=== PATIENT | male | born 1970 | race African-American/Black ===

== ENCOUNTER 2017-07-16 11:22 | Observation (INO) ==
[2017-07-16] MEDS ORDERED: methylPREDNISolone SOD SUC 125 MG/2 ML VIAL IV STA (11:38)
[2017-07-16] MEDS ORDERED: EPINEPHrine 1 MG/ML VIAL SUBCUT STA (11:38)
[2017-07-16] MEDS ORDERED: diphenhydrAMINE 50 MG/1 ML VIAL IV STA (11:38)
[2017-07-16] MEDS ORDERED: FAMOTIDINE 20 MG/2 ML VIAL IV STA (11:38)
[2017-07-16] MEDS ORDERED: diphenhydrAMINE 50 MG/1 ML VIAL ONE (11:51)
[2017-07-16] MEDS ORDERED: EPINEPHrine 1 MG/ML VIAL ONE (11:51)
[2017-07-16] MEDS ORDERED: methylPREDNISolone SOD SUC 125 MG/2 ML VIAL ONE (11:51)
--- NOTE | 2017-07-16 12:00 | Emergency Department Note ---
Anil Johnson Rolonda, am scribing for, and in the presence of, Valentina Ventura DO 11: 41. ILorenzo Debra, DO, personally performed the services described in this documentation, ascribed by Johnathan Ma in my presence, and it is both accurate and complete . Arrival - Arrival Chief Complaint: Allergic Reaction Stated Complaint: swollen lip;allergic reaction? ED Nursing Triage Note: c/o his upper lip started swelling this am., states he takes lisinopril , last dose this am., Mode of Arrival: Wheelchair Limitations: No Limitations Source: Patient, Old Records Reviewed, RN Notes Reviewed Time Seen by Provider: 07/16/17 11:37 - History of Present Illness HPI Narrative: Pt is a 46 y/o male who presents to the ED for further evaluation of allergic reaction with an onset of earlier this morning. Pt has a PMHx of HTN. He states that he is on Lisinopril and that his last dosage was this morning. Pt denies having SOB and any other pain. No other complaint/pain in ED. Onset (ago): hour(s) Consistency: constant Severity: moderate Severity scale (1-10): 4 Allergies/Adverse Reactions: Allergies Allergy/AdvReac Type Severity Reaction Status Date / Time No Known Allergies Allergy Verified 07/16/17 11:29 Home Medications: Home Medications Medication Instructions Recorded Confirmed Type Atorvastatin [Lipitor] 20 mg PO BEDTIME 05/23/17 05/23/17 History Azithromycin [Zithromax] 500 mg PO DAILY #5 tablet 05/23/17 Rx Lisinopril [Lisinopril] 40 mg PO BID 05/23/17 05/23/17 History Metoprolol Succinate 50 mg PO DAILY 05/23/17 05/23/17 History guaiFENesin/CODEINE [Robitussin AC] 5 ml PO Q6H PRN #120 liquid 05/23/17 Rx hydroCHLOROthiazide 25 mg PO DAILY 05/23/17 05/23/17 History [Hydrochlorothiazide] hydroCHLOROthiazide 25 mg PO DAILY 05/23/17 05/23/17 History [Hydrochlorothiazide] methylPREDNISolone DOSEPAK [Medrol 4 mg PO DAILY #21 tablet 05/23/17 Rx Dosepak] Review of System - Review of System 12 point system: reviewed and no additional remarkable complaints except as stated - Review of System Constitutional: Absent: chills, fever Eyes: Absent: discharge Head/Ears/Nose/Throat: Absent: earache Respiratory: Absent: cough Cardiovascular: Absent: chest pain Gastrointestinal: Absent: nausea Genitourinary male: Absent: urgency Musculoskeletal: Absent: arm pain, back pain Skin: Absent: rash Neurological: Absent: headache Psychiatric: Absent: anxiety Endocrine: Absent: cold intolerance Hematological/Lymphatic: Absent: easy bleeding Allergic/Immunologic: Present: facial swelling (lip) Medical,Surgical,& Family Hx - Medical History Cardio: History of: Cerebrovascular Disease, Hypertension Endocrine: History of: Dyslipidemia - Social History Smoking Status: Never smoker Frequency of Alcohol Use: None Type of Drug Use: None Exam Vital Signs: Vital Signs Temperature 97.7 F 07/16/17 12:18 Pulse Rate 60 07/16/17 12:45 Respiratory Rate 20 07/16/17 12:45 Blood Pressure 143/94 07/16/17 12:45 O2 Sat by Pulse Oximetry 100 07/16/17 12:45 - General General appearance: alert, in no apparent distress - Head Head exam: Present: atraumatic, normocephalic - Eye Eye exam: Present: PERRL, EOMI - ENT ENT exam: Present: mucous membranes moist, other (upper lip swelling). Absent: mucous membranes dry - Neck Neck exam: Present: full ROM. Absent: tenderness - Chest Chest inspection: Present: symmetric chest wall rise. Absent: tenderness - Respiratory Respiratory exam: Present: normal lung sounds bilaterally. Absent: wheezes - Cardiovascular Cardiovascular exam: Present: regular rate, normal rhythm, normal heart sounds. Absent: bradycardia - Abdominal Exam Abdominal exam: Present: soft, normal bowel sounds. Absent: tenderness - Extremities Exam Extremities exam: Present: full ROM. Absent: tenderness - Back Exam Back exam: Present: full ROM. Absent: tenderness - Neurological Exam Neurological exam: Present: alert, oriented X3, CN II-XII intact - Psychiatric Psychiatric exam: Present: normal affect, normal mood - Skin Skin exam: Present: warm, dry, intact, normal color. Absent: rash Course Course Narrative: Spoke with hospitalist who agrees to admission patient is stable at this time. No feeling of impending airway closure. Results - Labs CBC & BMP: 07/16/17 Unknown Lab Results: I have reviewed the patients labs Labs: Laboratory Tests 07/16/17 Unknown Sodium 138 Potassium 3.7 Chloride 104 Carbon Dioxide 27 BUN 11 GFR Calculation 167 Glucose 128 H AST 21 ALT 14 L Albumin/Globulin Ratio 1.0 L Disposition Clinical Impression: Angioedema Case discussed with: patient Disposition: Still a Patient Condition: Stable Time of Disposition: 13:47
[2017-07-16] MEDS ORDERED: FAMOTIDINE 20 MG/2 ML VIAL IV ONE (12:01)
[2017-07-16 13:35] LABS: Albumin 3.7 G/DL (3.4-5.0); Bilirubin,Total 0.6 MG/DL (0.2-1.0); Calcium 8.7 MG/DL (8.5-10.1); Magnesium 1.9 MG/DL (1.8-2.4); Osmolality,Calculated 275.7 MOS/KG (273-304); Potassium 3.7 MMOL/L (3.5-5.1); Total Protein 7.1 G/DL (6.4-8.3)
--- NOTE | 2017-07-16 13:46 | Hospitalist History & Physical ---
<Brian Ballard - Last Filed: 07/16/17 13:38> Assessment and Plan (1) Angioedema Status: Acute Assessment and plan: Admit for observation and close monitoring. IV bendaryl and IV solumedrol ordered. Supplemental O2 as needed. Discontinue lisinopril Current Visit: Yes (2) History of CVA (cerebrovascular accident) Status: Chronic Assessment and plan: Stroke in 2011. Current Visit: Yes (3) Hypertension Status: Acute Assessment and plan: Discontinue lisinopril. Blood pressure stable for now. Current Visit: Yes History of Present Illness Chief complaint: angioedema History of present illness: Mr. Priest is a 46 year old black male with a history of hypertension, CVA (2011) , and former tobacco abuse that presented to the ED for further examination of lip swelling. Mr. Priest states that the swelling occurred this morning about an hour after he took his lisinopril/hctz. Pt. states that he immediately came in. Pt. denies taking any medication at time of swelling. He reports that he has been taking this medication for years and this has never happened. His mother is present at the bedside and confirms this. Pt. denies any other symptoms at this time. He denies difficulty breathing or swallowing. Pt. has received IV benadryl, pepcid, and epi in the ED. Pt. will be placed in the ICU for observation overnight. Home Medications Medication Instructions Recorded Confirmed Type Atorvastatin [Lipitor] 20 mg PO BEDTIME 05/23/17 05/23/17 History Azithromycin [Zithromax] 500 mg PO DAILY #5 tablet 05/23/17 Rx Lisinopril [Lisinopril] 40 mg PO BID 05/23/17 05/23/17 History Metoprolol Succinate 50 mg PO DAILY 05/23/17 05/23/17 History guaiFENesin/CODEINE [Robitussin AC] 5 ml PO Q6H PRN #120 liquid 05/23/17 Rx hydroCHLOROthiazide 25 mg PO DAILY 05/23/17 05/23/17 History [Hydrochlorothiazide] hydroCHLOROthiazide 25 mg PO DAILY 05/23/17 05/23/17 History [Hydrochlorothiazide] methylPREDNISolone DOSEPAK [Medrol 4 mg PO DAILY #21 tablet 05/23/17 Rx Dosepak] Allergies Allergy/AdvReac Type Severity Reaction Status Date / Time No Known Allergies Allergy Verified 07/16/17 11:29 Medical,Surgical,& Family Hx - Medical History Cardio: History of: Cerebrovascular Disease, Hypertension Endocrine: History of: Dyslipidemia - Family History Family History: Reports;: Family Hypertension - Social History Smoking Status: Never smoker Frequency of Alcohol Use: None Type of Drug Use: None Marital Status: Single Lives With:: Alone Functional capacity: uses cane/walker - Constitutional Constitutional: Absent: chills, fatigue, fever(s) - EENT Eyes: Present: requires corrective lense Ears: Absent: decreased hearing Nose, mouth and throat: Absent: headache(s) - Cardiovascular Cardiovascular: Present: edema. Absent: chest pain at rest, dyspnea - Respiratory Respiratory: Absent: cough, dyspnea on exertion - Gastrointestinal Gastrointestinal: Absent: abdominal pain, nausea, vomiting - Musculoskeletal Musculoskeletal: Absent: back pain, limited range of motion - Neurological Neurological: Absent: confusion, dizziness - Hematologic/Lymphatic Hematologic/Lymphatic: Absent: easy bleeding, easy bruising Exam - Constitutional Vitals: Period Temp Pulse Resp BP Sys/Torres Pulse Ox Last 24 Hr 97.7 F-97.7 F 60-66 20-20 127-155/83-94 98-100 General appearance: over weight - Head Head exam: Present: normal inspection, normocephalic - Eye Eye exam: Present: EOMI Pupils: Present: SERGIO - Neck Neck exam: Present: normal inspection - Respiratory Respiratory exam: Present: clear to auscultation bilaterally. Absent: wheezes - Cardiovascular Cardiovascular exam: Present: regular rate and rhythm. Absent: tachycardia - GI/Abdominal GI/Abdominal exam: Present: normal bowel sounds, soft. Absent: tenderness - Extremities Exam Extremities exam: Present: normal capillary refill, full ROM, edema (BLE) - Neurological Exam Neurological exam: Present: alert, oriented X3, normal gait - Psychiatric Psychiatric exam: Present: normal affect, normal mood - Skin Skin exam: Present: normal color, warm, dry Results - Labs CBC & BMP: 07/16/17 Unknown Lab Results: I have reviewed the past 24 hour labs <Felix Carolina - Last Filed: 07/16/17 14:26> History of Present Illness History of present illness: Mr. Priest is a 46 year old male with a previous history of hypertension treated with lisinopril and hydrochlorothiazide. Presented to the emergency room today with severe swelling of his lips which began this morning shortly after taking his medications. He has not experienced any difficulty breathing. He was diagnosed with angioneurotic edema secondary to lisinopril and treated in the emergency department with intravenous Benadryl and epinephrine. I agree with the assessment and plans of nurse bo Ballard. The patient will be admitted to the intensive care unit for observation where he will be treated with intravenous Benadryl and corticosteroids. Exam - Constitutional Vitals: Period Temp Pulse Resp BP Sys/Torres Pulse Ox Last 24 Hr 97.7 F-97.7 F 60-67 17-20 126-155/70-94 98-100 Results - Labs CBC & BMP: 07/16/17 13:43 07/16/17 Unknown
[2017-07-16 13:51] LABS: Basophils % 0.1 % (0.0-0.8); Eosinophils # 0.3 10*3/uL (0.0-0.87); Eosinophils % 3.6 % (0.00-10.9); Hematocrit 36.2 VOL% (42.0-52.0); Hemoglobin 12.5 GM/DL (14.0-18.0); Immature Granulocytes % 0.4 %; Immature Granulocytes Absolute 0.03 #; Lymphocytes # 1.3 10*3/uL (1.4-4.0); Lymphocytes % 17.2 % (21.2-54.2); Mean Corpuscular HGB Conc 34.5 GM/DL (32-36); Mean Corpuscular Hemoglobin 28 PG (27-34); Mean Corpuscular Volume 81.7 FL (87-102); Mean Platelet Volume 10.4 FL (9.6-12.0); Monocytes # 0.4 10*3/uL (0.11-0.8); Monocytes % 5.5 % (1.7-12.7); Neutrophils # 5.4 10*3/uL (1.4-7.4); Neutrophils % 73.2 % (38.7-73.9); Platelet Count 262 T/CUMM (130-400); Red Blood Count 4.43 MC/CUMM (3.8-5.5); Red Cell Distribution Width 14.1 % (9.3-17.3); White Blood Count 7.3 T/CUMM (4-12)
[2017-07-16] MEDS ORDERED: hydrALAZINE 20 MG/1 ML VIAL IV PRN (14:29)
[2017-07-16] MEDS ORDERED: ACETAMINOPHEN 325 MG TABLET PO PRN (14:33)
[2017-07-16] MEDS: methylPREDNISolone SOD SUC 40 MG/1 ML VIAL IV SCH ×2 (14:41→20:41)
[2017-07-16] MEDS: SODIUM CHLORIDE 0.9% 1,000 ML IV SCH (14:42)
[2017-07-16 14:54] LABS: Apearance,Urine CLEAR (Clear); Bilirubin,Urine Negative (Negative); Blood, Urine Negative (Negative); Glucose,Urine (UA) Negative (Negative); Ketones,Urine Negative (Negative); Nitrite,Urine Negative (Negative); Protein,Urine Negative; Squamous Epithelial Cell,Urine Occasional /HPF (0-10); Urine Color Straw (Yellow); Urine Specific Gravity 1.004 (1.001-1.035); Urine Urobilinogen < 2.0 EU/DL (0.2-1.0); WBC,Urine <1 /HPF (0-6)
[2017-07-16] MEDS: diphenhydrAMINE 50 MG/1 ML VIAL IV SCH (17:47)
[2017-07-17] MEDS: diphenhydrAMINE 50 MG/1 ML VIAL IV SCH ×2 (00:10→06:05)
[2017-07-17] MEDS: methylPREDNISolone SOD SUC 40 MG/1 ML VIAL IV SCH ×2 (02:20→08:14)
[2017-07-17] MEDS: SODIUM CHLORIDE 0.9% 1,000 ML IV SCH (04:46)
[2017-07-17 05:23] LABS: Albumin 3.4 G/DL (3.4-5.0); Bilirubin,Total 0.8 MG/DL (0.2-1.0); Calcium 8.9 MG/DL (8.5-10.1); Magnesium 1.8 MG/DL (1.8-2.4); Osmolality,Calculated 275.7 MOS/KG (273-304); Potassium 3.8 MMOL/L (3.5-5.1); Total Protein 6.5 G/DL (6.4-8.3)
[2017-07-17 05:59] LABS: Basophils % 0.1 % (0.0-0.8); Hematocrit 36.4 VOL% (42.0-52.0); Hemoglobin 12.3 GM/DL (14.0-18.0); Immature Granulocytes % 0.6 %; Immature Granulocytes Absolute 0.05 #; Lymphocytes # 0.9 10*3/uL (1.4-4.0); Lymphocytes % 10.2 % (21.2-54.2); Mean Corpuscular HGB Conc 33.8 GM/DL (32-36); Mean Corpuscular Hemoglobin 28 PG (27-34); Mean Corpuscular Volume 82.9 FL (87-102); Mean Platelet Volume 9.4 FL (9.6-12.0); Monocytes # 0.2 10*3/uL (0.11-0.8); Monocytes % 1.9 % (1.7-12.7); Neutrophils # 7.2 10*3/uL (1.4-7.4); Neutrophils % 87.2 % (38.7-73.9); Platelet Count 330 T/CUMM (130-400); Red Blood Count 4.39 MC/CUMM (3.8-5.5); Red Cell Distribution Width 14.1 % (9.3-17.3); White Blood Count 8.3 T/CUMM (4-12)
[2017-07-17] MEDS: ASPIRIN EC 81 MG TABLET PO SCH (08:14)
[2017-07-17] MEDS: METOPROLOL SUCCINATE XL 50 MG TABLET PO SCH (08:15)
[2017-07-17] MEDS: hydroCHLOROthiazide 25 MG TABLET PO SCH (08:15)
--- NOTE | 2017-07-17 08:31 | Hospitalist Progress Note ---
Assessment and Plan - Time spent with patient Time spent with patient: Less than 30 minutes (1) Angioedema Status: Acute Assessment and plan: Patient was admitted with angioedema secondary to WILLIAM inhibitors. His lisinopril is been discontinued. He is being treated with IV methylprednisolone , IV Benadryl, and Norvasc has been added for his antihypertensive regimen. He is improved symptomatically. Will convert to p.o. medications and transfer to the floor. Will consider discharge later today or early a.m. Current Visit: Yes (2) Hypertension Status: Chronic Assessment and plan: Discontinuing his WILLIAM inhibitor as noted above. Norvasc has been added. Will follow. Current Visit: Yes Qualifiers: Hypertension type: essential hypertension Qualified Code(s): I10 - Essential (primary) hypertension Hospitalist: Subjective Interval history: Patient was admitted yesterday with angioedema secondary to WILLIAM inhibitors. He is doing well today sitting on the side of bed eating without complaints of abdominal pain or cramping, shortness of breath. He does have some swelling of his lips but this is improved. Exam - Constitutional Vitals: Period Temp Pulse Resp BP Sys/Torres Pulse Ox Last 24 Hr 97.3 F-98.7 F 60-92 15-28 114-155/66-96 94-100 General appearance: no acute distress - Head Head exam: Present: normocephalic, atraumatic - Eye Eye exam: Present: EOMI Pupils: Present: SERGIO - ENT ENT exam: Present: normal exam, other (There is swelling of his lips and tongue) - Neck Neck exam: Present: normal inspection - Respiratory Respiratory exam: Present: clear to auscultation bilaterally. Absent: rales, rhonchi, wheezes - Cardiovascular Cardiovascular exam: Present: regular rate and rhythm. Absent: systolic murmur , tachycardia - GI/Abdominal GI/Abdominal exam: Present: normal bowel sounds, soft. Absent: tenderness, rebound - Extremities Exam Extremities exam: Present: normal capillary refill. Absent: calf tenderness, edema - Neurological Exam Neurological exam: Present: alert, oriented X3, CN II-XII intact. Absent: motor sensory deficit - Psychiatric Psychiatric exam: Present: normal affect, normal mood. Absent: agitated, anxious - Skin Skin exam: Present: warm, dry. Absent: erythema, petechiae, rash Results - Labs CBC & BMP: 07/17/17 05:52 08/27/17 04:28 Lab Results: I have reviewed the past 24 hour labs
[2017-07-17] MEDS ORDERED: amLODIPine 5 MG TABLET PO SCH (09:00)
[2017-07-17] MEDS: diphenhydrAMINE CAP 50 MG CAPSULE PO SCH ×3 (09:46→23:30)
[2017-07-17] MEDS: amLODIPine 10 MG TABLET PO SCH (09:47)
[2017-07-17] MEDS: predniSONE 20 MG TABLET PO SCH (09:53)
[2017-07-17] MEDS: FAMOTIDINE 20 MG TABLET PO SCH ×2 (09:53→21:05)
[2017-07-17] MEDS ORDERED: ATORVASTATIN 20 MG TABLET PO SCH (21:00)
--- NOTE | 2017-07-18 08:09 | Discharge Summary ---
Hospital Course - Hospital Course Hospital Course: 46-year-old male with a history of hypertension, CVA, former tobacco abuser who presented to the emergency room with increased swelling of his face and lips. It occurred approximately half hour after he took his lisinopril. He immediately came in and was evaluated and admitted to the hospitalist service for angioedema secondary to WILLIAM inhibition. He was placed in the IMCU overnight received IV Benadryl, Pepcid, epinephrine in the ED corticosteroids was added to his regimen. He did well overnight and was transferred to the floor. He remained hemodynamically stable. He was tolerating his diet without any swallowing difficulty, abdominal cramping, nausea, vomiting, shortness of breath. He was converted to oral medications and did well and is ready for discharge at this time. - Time spent with patient Time with patient DS: Less than 30 minutes Diagnosis - Discharge Diagnosis (1) Angioedema Status: Acute (2) Hypertension Status: Chronic Discharge Plan - Discharge Data Disposition: Disch To Home/Self Care Condition at Discharge: Stable Discharge Diet: advance to your usual diet Activity: resume usual activities as tolerated Contact your physician if you experience:: fever over 101, Redness or swelling, Shortness of breath - Discharge Medications New amLODIPine [Norvasc] 10 mg PO DAILY #30 tablet diphenhydrAMINE CAP [Benadryl Cap] 50 mg PO Q8H #21 capsule Famotidine Tab [Pepcid Tab] 20 mg PO BID #14 tablet predniSONE TAB [PredniSONE] 40 mg PO DAILY #3 tablet Continue hydroCHLOROthiazide [Hydrochlorothiazide] 25 mg PO QAM Metoprolol Succinate 50 mg PO QAM Aspirin EC Tab 81 mg PO QAM Atorvastatin [Lipitor] 20 mg PO BEDTIME Discontinued Lisinopril [Lisinopril] 40 mg PO BID - Follow Up or Referral Follow Up: [facility], [facility] [Other] - 5 Days - Forms/Instructions Additional Discharge Instructions: Do Not take any WILLIAM inhibitors or ARB's Exam - Constitutional Vitals: Period Temp Pulse Resp BP Sys/Torres Pulse Ox Last 24 Hr 98.1 F-99.1 F 65-88 16-20 126-145/67-91 93-96 General appearance: no acute distress - Head Head exam: Present: normocephalic, atraumatic - Eye Eye exam: Present: EOMI Pupils: Present: SERGIO - ENT ENT exam: Present: other (Residual edema of the right upper and lower limb) - Neck Neck exam: Present: normal inspection - Respiratory Respiratory exam: Present: clear to auscultation bilaterally. Absent: rales, rhonchi, wheezes - Cardiovascular Cardiovascular exam: Present: regular rate and rhythm. Absent: tachycardia - GI/Abdominal GI/Abdominal exam: Present: normal bowel sounds, soft. Absent: mass, tenderness , rebound - Extremities Exam Extremities exam: Absent: calf tenderness, edema - Back Exam Back exam: Present: normal inspection - Neurological Exam Neurological exam: Present: alert, oriented X3, CN II-XII intact. Absent: motor sensory deficit - Psychiatric Psychiatric exam: Present: normal affect, normal mood. Absent: agitated, anxious - Skin Skin exam: Present: warm, dry. Absent: erythema, rash Discharge Results Procedures and tests throughout hospitalization: Pending Orders 07/16/17 14:35 MRSA Surveillence, Inf Control Routine Labs on day of discharge: Preliminary micro results at discharge 07/16/17 14:35 MRSA Surveillance Culture - Preliminary Nares - Both Nares (Mrsa screen) No MRSA isolated. DS: Provider Date of admission: 07/16/17 13:10 Primary care physician: . No PCP [facility] [place] Attending physician on admission: Felix Carolina Discharging clinician: Logan Branch Expected date of discharge: 07/18/17
[2017-07-18] MEDS: FAMOTIDINE 20 MG TABLET PO SCH (08:22)
[2017-07-18] MEDS: METOPROLOL SUCCINATE XL 50 MG TABLET PO SCH (08:22)
[2017-07-18] MEDS: amLODIPine 10 MG TABLET PO SCH (08:22)
[2017-07-18] MEDS: ASPIRIN EC 81 MG TABLET PO SCH (08:22)
[2017-07-18] MEDS: hydroCHLOROthiazide 25 MG TABLET PO SCH (08:22)
[2017-07-18] MEDS: diphenhydrAMINE CAP 50 MG CAPSULE PO SCH (08:22)
[2017-07-18] MEDS: predniSONE 20 MG TABLET PO SCH (08:22)
[2017-07-18 08:51] VITALS: BP 148/91
== END 2017-07-18 12:33 | disposition home or self-care (01) ==
LOC: N.EDINP 11:22 → N.ED 11:22 → SUATTDRO 13:10 → N.CC 14:00 → N.4E 07-17 10:35
PROVIDERS: ATTEND Hospitalist